=== PATIENT | female | born 1945 | race Caucasian/White ===

== ENCOUNTER 2024-03-28 02:37 | Observation (INO) | payer MEDICARE, BC, SELFPAY ==
[2024-03-27] VITALS (7 sets, daily range): BP systolic 72–138; BP diastolic 56–111; PULSE 114–124; BMI 26.4
[2024-03-27 21:28] LABS: % Basophils 0.4 % (0-2); % Eosinophils 0.8 % (0-6); % Immature Granulocytes 0.5 % (0-0.5); % Lymphocytes 12.8 % (20.5-51.1); % Monocytes 7.3 % (1.7-9.3); % Neutrophils 78.2 % (42.2-75.2); Absolute Basophils 0.1 10^3/uL (0-0.2); Absolute Eosinophils 0.1 10^3/uL (0-0.7); Absolute Immature Granulocytes 0.1 10^3/uL (0-0.05); Absolute Lymphocytes 1.4 10^3/uL (1.2-3.4); Absolute Monocytes 0.8 10^3/uL (0.1-0.6); Absolute Neutrophils 8.8 10^3/uL (1.4-6.5); Hematocrit 38.5 % (37.0-47.0); Mean Corp Hgb Conc. 36.4 g/dL (33.0-37.0); Mean Corpuscular Hgb 31.7 pg (27.0-31.0); Mean Corpuscular Volume 87.3 fL (81.0-99.0); Mean Platelet Volume 9.4 fL (7.4-10.4); Nucleated Red Blood Cells % 0 %; Platelet Count 452 10^3/uL (130-400); Red Blood Cell Count 4.41 10^6/uL (4.20-5.40); Red Cell Dist. Width 13.4 % (11.5-14.5); White Blood Cell Count 11.3 10^3/uL (4.8-10.8)
--- NOTE | 2024-03-27 21:43 | ED.GENMED ---
History of Present Illness
General
Chief Complaint: Heart Rate Problem
Time Seen by Provider: 03/27/24 21:32
History of Present Illness
History of Present Illness:
78-year-old female with history of A-fib on Eliquis and metoprolol, hyperlipidemia, hypertension presenting to the emergency department after syncopal episode. Patient reports that she was seen in the hospital today, had a colonoscopy. The GI
doctor had difficulty removing a polyp, so patient was under anesthesia for longer than anticipated. During the procedure, did have an episode of vomiting, however per documentation, no concern for aspiration. Patient reports that she woke up for
the procedure, has been feeling dizzy. She did not take any of her medications today including her metoprolol. She also has not taken her Eliquis for the past 2 days. She did not eat very much today, did have some crackers prior to bedtime. She
got up for the first time prior to arrival, had a syncopal episode in the bathroom. She is unsure whether or not she struck her head. She continues to report generalized lightheadedness and dizzy. Denies chest pain, difficulty breathing. Patient
noted to be in A-fib on arrival, reports that she cannot tell when she is in A-fib. Patient denies additional acute complaints
Phy Exam
Physical Exam
Physical Exam:
General: Well-appearing, no clinical signs of dehydration, nontoxic and in no acute distress
HEENT: protecting airway
Neck: appears supple, no midline tenderness
CV: Tachycardic, irregularly irregular rhythm, no evidence of cyanosis
Resp: No accessory muscle use, no increased work of breathing, lungs clear to auscultation bilaterally
Abd: Soft and non-distended, no tenderness to palpation
Extremities: No deformities, no swelling, no erythema
Neuro: alert, no focal neurologic deficit
: deferred
Rectal: deferred
Psych: Normal affect
Skin: Intact
Course
Orders/Labs/Results
Orders:
Orders
03/27/24 21:11
Electrocardiogram (*1) Urgent
Reason for Study: Chest Pain
EKG- Treatment ONCE
IV Insert/Care/Rem.- Treatment PRN
03/27/24 21:21
Complete Blood Count/With Diff Urgent
Comprehensive Metabolic Panel Urgent
03/27/24 21:41
CT Head W/o Iv Contrast Urgent
Comment:
Reason For Exam: fall on eliquis
Orthostatic VS- Treatment ONCE
0.9% Sodium Chloride 1000 ml [Nss] 1,000 ml IV BOLUS
Metoprolol [Lopressor] 5 mg IV NOW STA
03/27/24 21:49
Prothrombin Time Urgent
Troponin I Urgent
03/27/24 22:37
Metoprolol [Lopressor] 50 mg PO NOW STA
03/28/24 00:45
Troponin I Urgent
Abnormal Lab Results
03/27/24 03/27/24
21:21 21:49
WBC 11.3 H 10^3/uL
(4.8-10.8)
MCH 31.7 H pg
(27.0-31.0)
Plt Count 452 H 10^3/uL
(130-400)
Abs Immat Gran (auto) 0.1 H 10^3/uL
(0-0.05)
Absolute Neuts (auto) 8.8 H 10^3/uL
(1.4-6.5)
Absolute Monos (auto) 0.8 H 10^3/uL
(0.1-0.6)
Neutrophils % 78.2 H %
(42.2-75.2)
Lymphocytes % 12.8 L %
(20.5-51.1)
Carbon Dioxide 20 L mmol/L
(22-30)
BUN 23 H mg/dl
(7-17)
Creatinine 1.2 H mg/dL
(0.6-1.0)
Glucose 119 H mg/dl
(70-99)
Troponin I 0.063 H* ng/ml
03/27/24 21:21
03/27/24 21:21
Vital Signs
Initial and Last Documented VS:
Initial Vital Signs
Pulse Resp BP Pulse Ox
140 19 110/75 95
03/27/24 21:12 03/27/24 21:12 03/27/24 21:12 03/27/24 21:12
Last Documented Vital Signs
Temp Pulse Resp BP Pulse Ox
98.3 F 117 27 103/56 97
03/27/24 21:19 03/27/24 22:00 03/27/24 22:00 03/27/24 22:00 03/27/24 22:00
MDM/Problems Addressed
MDM/Problems Addressed:
78-year-old female with history of A-fib on Eliquis and metoprolol presenting after syncopal episode. Vital signs on arrival are significant for tachycardia.
On exam, patient is resting comfortably, no acute distress or discomfort. Patient appears to be in A-fib with RVR. Suspect that this could secondary to not taking any of her medications today, in addition reaction to anesthesia. Patient not a
candidate for cardioversion, has not taken last 2 doses of Eliquis. Regarding syncopal episode, do suspect component of dehydration, possible vasovagal given volume depletion today and anesthesia. Will plan for laboratory analysis and start
patient IV fluids. Will check orthostatics. No focal neurologic deficits on exam with most of her central neurologic process. Given anticoagulation status and unknown if patient struck head, will obtain CT brain. No cervical tenderness.
23:30 -Labs show mild elevation of creatinine, consistent with mild dehydration. CT brain is negative. Troponin is slightly elevated, suspected demand ischemia from RVR. Heart rate has improved. Patient still symptomatic. Positive orthostatics
with near syncope upon standing. Plan for admission for continued cardiac monitoring, troponin trending.
*EKG
Interpreted by ED Provider?: Yes
EKG Intrepretation Date: 03/27/24
EKG Intrepretation Time: 21:49
Interpretation: abnormal
Comparison EKG: changes noted (07/22/14)
Heart Rate: 144
Rate: tachycardiac
Rhythm: a-fib
Gray: normal axis
QRS Pattern: normal QRS
Ischemia: no ischemia
*Critical Care Note
Total Time (30-74mins, 75-104mins- exclusive of procedures): Not Applicable
ED Attending Note
-
Portions of this chart may have been created with voice recognition software.� Occasional wrong word or��sound alike� substitutions may have occurred due to the inherent limitations of voice recognition software.
Discharge Plan
Departure
Prescriptions:
No Action
omeprazole 20 MG tablet,delayed release (DR/EC)
20 mg PO DAILY
estradiol [Vagifem] 10 MCG tablet
10 mcg VAG TUFR Qty: 0
L.acidoph,paracasei,B.animalis 1 EACH capsule
1 ea PO DAILY
Patient Comments:
Probiotic Senior
calcium carbonate [Oyster Shell Calcium 500] 500 MG tablet
500 mg PO BID Qty: 0 0RF
loratadine 10 MG tablet
10 mg PO DAILY Qty: 0 0RF
levothyroxine 75 MCG tablet
75 mcg PO DAILY AT 0700
diltiazem HCl 240 MG capsule,extended release 24hr
240 mg PO DAILY
losartan-hydrochlorothiazide 1 EACH tablet
1 ea PO DAILY
ranitidine HCl [Zantac] 150 MG tablet
150 mg PO PRN PRN (Reason: GI sx)
methylcellulose (laxative) [Citrucel] 500 MG tablet
2,000 mg PO DAILY
magnesium 250 MG tablet
250 mg PO DAILY
atorvastatin 10 MG tablet
10 mg PO QPM
sennosides [senna] 1 TABLET tablet
2 tab PO BID Qty: 0 0RF
acetaminophen 325 MG tablet
650 mg PO Q4HWA Qty: 0 0RF
prednisone 10 MG tablet
20 mg PO TAPER Qty: 3 0RF
Rx Instructions:
2 tabs 07/13, 1 tab 07/14, then stop
polyethylene glycol 3350 17 GRAMS powder in packet
17 grams PO DAILY Qty: 0 0RF
famotidine 20 MG tablet
20 mg PO DAILYPRN PRN (Reason: GI SYMPTOMS) Qty: 0 0RF
magnesium hydroxide 30 ML suspension
30 ml PO DAILYPRN PRN (Reason: constipation) Qty: 0 0RF
warfarin [Jantoven] 5 MG tablet
7.5 mg PO HS Qty: 120 0RF
Rx Instructions:
take 1 1/2 tabs (or 7/5mg) tonight 07/12, and th 07/13, then as advised after INR fri
docusate sodium 100 MG capsule
100 mg PO BID Qty: 0 0RF
oxycodone 5 MG tablet
5 mg PO Q4HPRN PRN (Reason: moderate-severe pain) Qty: 90 0RF
Rx Instructions:
dx tka
1-2 tabs
Referrals:
Asim Murphy MD [Family Provider] -
Interventions
Interventions:
*Risk Screen - Suicide Last Done: 03/27/24 21:12
*General Assessment Last Done: 03/27/24 21:12
*Neglect/Abuse Screening Last Done: 03/27/24 21:12
ED- Fall Risk Assessment Last Done: 03/27/24 22:01
*ED COVID-19 Vaccine History Last Done: 03/27/24 21:12
ED- Cardiac Assessment Last Done: 03/27/24 22:01
ED- Pulmonary Assessment Last Done: 03/27/24 22:01
Discharge Date and Time
Print Language: DJIBOUTIAN
[2024-03-27] MEDS: NSS 1000 IV (21:47)
[2024-03-27] MEDS: LOPRESSOR 5 MG IV (21:49)
[2024-03-27 21:50] LABS: ALT (SGPT) 22 U/L (0-35); AST (SGOT) 29 U/L (14-36); Albumin 4.6 g/dl (3.5-5.0); Alkaline Phosphatase 83 U/L (38-126); Blood Urea Nitrogen 23 mg/dl (7-17); Calcium 8.9 mg/dl (8.4-10.2); Carbon Dioxide 20 mmol/L (22-30); Chloride 102 mmol/L (98-107); Estimated Creatinine Clearance 39 ml/min; Glucose 119 mg/dl (70-99); Potassium 3.5 mmol/L (3.5-5.1); Sodium 135 mmol/L (135-145); Total Bilirubin 0.9 mg/dl (0.2-1.3); Total Protein 6.6 g/dl (6.3-8.2); eGFR 45.76
[2024-03-27 22:06] LABS: INR 0.94; PT 13.1 Sec (11.4-14.6)
[2024-03-27 22:23] LABS: Troponin I 0.063 ng/ml
[2024-03-27] MEDS: LOPRESSOR 50 MG PO (22:44)
--- NOTE | 2024-03-27 23:53 | PTCARENOTE ---
Pt had episode of sycope while standing during othostatics. Pt was placed in trendelenbrg, provided fluids, s/s resolved. Pt aox4, with improved color.
[2024-03-28] VITALS (33 sets, daily range): BP systolic 90–160; BP diastolic 52–95; PULSE 65–87
--- NOTE | 2024-03-28 01:41 | HPS.HSE ---
Family Physician
-
Family Physician: Asim Murphy
Chief Complaint
-
syncopal episode, uncontrolled afib
History of Present Illness
This is an 78-year-old female with past medical history of atrial fibrillation on eliquis and metoprolol coming in with syncope.
Patient reported that she had a colonoscopy on morning. Prior to that she was off Eliquis for 3 days. She was having a limited diet with only clear liquids for 1 day.
They had difficulty getting a polyp so was under sedation for awhile. Appeared to have been a rather large polyp and not everything was excised. She is pending a biopsy results. She denies having any bowel movement since. She clearly did not
have any blood. She felt dizzy getting up. Later on when she had a very small meal. She went home and went to bed. She stood up from bed and tried to walk across the room she became very lightheaded and dizzy and passed out in the bathroom. She
was not sure whether she hit her head or not. Didn't eat much today and didn't take any of her cardiac medications.
In the ED she was found to have some urinary retention requiring straight cath 404 50 cc of urine. She denied any dysuria. She denied fevers or chills.
In the emergency department she was afebrile, she was tachycardic, blood pressure was 90/69 with a pulse of 117. ECG shows A-fib at rate of 144, troponin was 0.06. CT of the head was negative. CBC was unremarkable. Electrolytes BUN/creatinine
were also mostly unchanged from baseline. Creatinine slightly worsened from 0.9-1.2.
She was given some IV fluids and metoprolol in the ED. She was found to be positively orthostatic and near syncopal when she stood up.
Medical History
Past Medical History
Past Medical History: Reports Arrhythmia (Proximal atrial fibrillation), GERD, HTN, Hypercholesterolemia, Hypothyroidism and Other (Essential thrombocytosis)
Past Surgical History: Reports Gynocological (Status post hysterectomy) and Orthopedic (Status post total right knee arthroplasty)
Social History
Tobacco: Non-smoker
Alcohol: None
Drug: None
Employment: Retired
Family History
Family History: Not pertinent
Allergies / Home Medications
Allergies reflects when Allergies were last updated in [facility].
Home Medications with original date entered in [facility]
Allergy/Medication List:
Allergies
Allergy/AdvReac Type Severity Reaction Status Date / Time
adhesive Allergy Rash Verified 07/10/16 10:08
bacitracin Allergy Rash Verified 07/10/16 10:08
[From Neosporin
([id number])]
bacitracin zinc Allergy Rash Verified 07/10/16 10:08
[From Neosporin
([id number])]
Latex, Natural Rubber Allergy Rash Verified 07/10/16 10:08
neomycin sulfate Allergy Rash Verified 07/10/16 10:08
[From Neosporin
([id number])]
polymyxin B Allergy Rash Verified 07/10/16 10:08
[From Neosporin
([id number])]
polymyxin B sulfate Allergy Rash Verified 07/10/16 10:08
[From Polysporin]
Enviornmental Allergy Stuffiness, Uncoded 07/10/16 10:08
sneezing
Home Medications
Hydroxyurea 500 MG 1 capsule Orally Once a day - Active
ZyrTEC Allergy 10 MG 1 tablet Orally Once a day Active
hydroCHLOROthiazide 25 MG 1 tablet in the morning Orally Once a day for 90 days Active
Magnesium Glycinate 120 MG as directed Orally 150 mg Active
Valsartan 320 MG 1 tablet Orally Once a day Active
Cartia XT 240 MG 1 capsule Orally Once a day for 90 days May, Active
CoQ-10 100 MG 1 capsule with a meal Orally Twice a Day for 30 days Active
Probiotic - Orally Active
Toprol XL 25 MG 1 tablet Orally Once a day for 90 days Apr, Active
Calcium Citrate 150 MG as directed Orally Active
Losartan Potassium 100 MG 1 tablet Orally Once a day for 90 days Not-Taking/PRN
Multivitamin Adult - 1 tablet Orally BID Active
Aloe Vera 25 MG as directed Orally Active
Metoprolol Tartrate 25 MG 1 tablet with food Orally as needed for 30 days as needed for A-Fib Active
Loratadine 10 MG 1 tablet Orally Once a day for 30 day(s) Active
Eliquis 5 MG 1 tablet Orally BID for 90 days Active
Atorvastatin Calcium 10 MG 1 tablet Orally Once a day for 30 day(s) Active
Levothyroxine Sodium 75 MCG take 1 tablet by oral route every day Oral Active
Review of Systems
-
Constitutional: Reports No Symptoms
EENT: Reports No Symptoms
Respiratory: Reports No Symptoms
Cardiac: Reports No Symptoms
Abdomen/GI: Reports No Symptoms
: Reports No Symptoms
Musculoskeletal: Reports No Symptoms
Skin: Reports No Symptoms
Neurological: Reports No Symptoms
Endocrine: Reports No Symptoms
Hematologic/Lymphatic: Reports No Symptoms
Psych: Reports No Symptoms
Physical Exam
Vital Signs
Vital Signs
Temp Pulse Resp BP Pulse Ox
98.3 F 117 31 99/69 95
03/27/24 21:19 03/28/24 00:30 03/28/24 00:30 03/28/24 00:30 03/28/24 00:30
Physical Exam
General: Well Developed, Well Nourished, No Apparent Distress and Comfortable
HEENT: NormoCephalic, Anicteric, Moist mucous membranes and Atraumatic
Respiratory: Clear
Cardiac: S1/S2, Irregular Rhythm and Tachycardia
Breast: Deferred by me
GI: Soft, Non Tender, Non Distended and Normal Bowel Sounds
Rectal: Deferred by Provider
Genito-urinary: Clear Urine
Musculoskeletal: No Clubbing and No Cyanosis
Skin: Warm
Neuro: AO x 3 and Nonfocal/grossly intact
Hematologic/Lymphatic: No Lymphadenopathy
Psych: Calm
Laboratory Results
-
03/27/24 21:21
03/27/24 21:21
Laboratory Results
PT 13.1 Sec (11.4-14.6) 03/27/24 21:49
INR 0.94 03/27/24 21:49
Total Bilirubin 0.9 mg/dl (0.2-1.3) 03/27/24 21:21
AST 29 U/L (14-36) 03/27/24 21:21
ALT 22 U/L (0-35) 03/27/24 21:21
Alkaline Phosphatase 83 U/L (38-126) 03/27/24 21:21
Troponin I 0.063 ng/ml H* 03/27/24 21:49
Data Reviewed
-
CT Scan: Report Reviewed by me
Medical Tests (Nuc Med, Echo, EKG etc): Image Personally Visualized and interpreted
Lab Data: Labs Reviewed by me
Old Records: Reviewed
Impression/Plan
-
IMPRESSION:
78-year-old female who is status post colonoscopy with removal of a large polyp presents to the emergency department with syncopal episode and found to be in A-fib RVR. She has been of metoprolol and Eliquis. She has been off Eliquis for 3 days
and off of metoprolol for over 24 hours. She states she takes metoprolol as needed for A-fib in addition to her Toprol-XL daily. She is also on diltiazem to 240 mg which she did not take.
PLAN:
1. Syncope - Suspect hemodynamic and secondary to prolonged anesthesia. No evidence of blood loss but has not had any bms
- admit to telemetry/observation
- hold eliquis for now
- hold valsartan and hctz
- orthostatic v/s in am
- continue iv fluids overnight
- check u/a
2. AFIB RVR - Likely due to dehydration and holding off medications
- holding valsartan hctz
- hold eliquis for 2 days post op and ensure no bleeding
- will give metoprolol and diltiazem tonight and restart long acting forms in am
- continue telemetry monitoring
3. Trop elevation - I suspect in setting of demand due to afib rvr and relative hypotension. No chest pain
- trend troponin
- no ac for now unless up trending
- stool occult testing
DVT PPX - SCDs for now
Code status - full code
[2024-03-28 02:18] LABS: Troponin I 0.068 ng/ml
[2024-03-28] MEDS: NSS 500 IV (02:37)
[2024-03-28] MEDS: NSS 1000 IV ×2 (04:41→13:55)
[2024-03-28 05:36] LABS: Hematocrit 32.8 % (37.0-47.0); Hemoglobin 11.4 g/dL (12.0-16.0); Mean Corp Hgb Conc. 34.8 g/dL (33.0-37.0); Mean Corpuscular Hgb 31.8 pg (27.0-31.0); Mean Corpuscular Volume 91.4 fL (81.0-99.0); Mean Platelet Volume 9.8 fL (7.4-10.4); Platelet Count 388 10^3/uL (130-400); Red Blood Cell Count 3.59 10^6/uL (4.20-5.40); Red Cell Dist. Width 13.6 % (11.5-14.5); White Blood Cell Count 9.4 10^3/uL (4.8-10.8)
[2024-03-28 05:48] LABS: Urine Albumin Negative (Neg - Trace); Urine Bilirubin Negative (Negative); Urine Character Clear (Clear); Urine Color Yellow; Urine Glucose Negative (Negative); Urine Ketone Negative (Negative); Urine Leukocyte Negative (Negative); Urine Nitrite Negative (Negative); Urine Occult Blood Negative (Negative); Urine Specific Gravity 1.015 (<1.030); Urine Urobilinogen Negative (Neg - 1+)
[2024-03-28 06:07] LABS: Blood Urea Nitrogen 20 mg/dl (7-17); Calcium 7.5 mg/dl (8.4-10.2); Carbon Dioxide 21 mmol/L (22-30); Chloride 107 mmol/L (98-107); Estimated Creatinine Clearance 47 ml/min; Glucose 141 mg/dl (70-99); Potassium 3.2 mmol/L (3.5-5.1); Sodium 139 mmol/L (135-145); eGFR 56.95
[2024-03-28 06:11] LABS: Troponin I 0.064 ng/ml
[2024-03-28] MEDS: SYNTHROID 75 MCG PO (09:29)
[2024-03-28] MEDS: KCL 40 MEQ PO (09:29)
[2024-03-28] MEDS: CLARITIN 10 MG PO (09:29)
[2024-03-28] MEDS: TOPROL XL 25 MG PO (09:33)
[2024-03-28] MEDS: CARDIZEM CD 240 MG PO (09:33)
--- NOTE | 2024-03-28 14:13 | W.PN.UPDATE ---
Update Note
Progress Note Update
Seen and examined independent of overnight physician
States feeling significantly better. Denies any lightheaded and dizziness
Able to tolerate diet without any difficulty
Converted to normal sinus rhythm on the monitor.
General: Well Developed, Well Nourished, No Apparent Distress and Comfortable
HEENT: NormoCephalic, Anicteric, Moist mucous membranes and Atraumatic
Respiratory: Clear
Cardiac: S1/S2, regularly regular
Breast: Deferred by me
GI: Soft, Non Tender, Non Distended and Normal Bowel Sounds
Rectal: Deferred by Provider
Genito-urinary: Clear Urine
Musculoskeletal: No Clubbing and No Cyanosis
Skin: Warm
Neuro: AO x 3 and Nonfocal/grossly intact
Hematologic/Lymphatic: No Lymphadenopathy
Psych: Calm
IMPRESSION:
78-year-old female who is status post colonoscopy with removal of a large polyp presents to the emergency department with syncopal episode and found to be in A-fib RVR. She has been of metoprolol and Eliquis. She has been off Eliquis for 3 days
and off of metoprolol for over 24 hours. She states she takes metoprolol as needed for A-fib in addition to her Toprol-XL daily. She is also on diltiazem to 240 mg which she did not take.
PLAN:
Syncope - Suspect hemodynamic and secondary to prolonged anesthesia. No evidence of blood loss but has not had any bms
- hold eliquis for now as supposed to be helpful 2 days postprocedure
- hold valsartan and hctz
- Orthostatic negative.
- Blood pressure stabilized. DC further fluids. Tolerating p.o. intake.
AFIB RVR - Likely due to dehydration and holding off medications -now in NSR
- holding valsartan hctz
- hold eliquis for 2 days post op and ensure no bleeding
- will give metoprolol and diltiazem tonight and restart long acting forms patient converted to normal sinus rhythm on telemetry. Heart rate controlled.
- continue telemetry monitoring. Follows with [facility] cardiology Dr. Tapia
Nonischemic myocardial injury suspect in setting of demand due to afib rvr and relative hypotension. No chest pain
-Patient denies any chest pain at rest or exertion.
Leukocytosis likely reactive
Resolved
Hypokalemia�replete and monitor
DVT PPX - SCDs for now
Code status - full code
PT/OT ordered.
Await for rehab evaluation. Continue to hold lisinopril HCTZ. Monitor heart rate. Plan for tentative DC later today
--- NOTE | 2024-03-28 16:23 | W.DCSUMMARY ---
Discharge Summary
Discharge Data
Date of Admission: 03/28/24
Date of Discharge: 03/28/24
-
Pending Results: No
Hospital Course
78-year-old female past medical history of atrial fibrillation, GERD, primary hypertension, hyperlipidemia, hypothyroidism who is status post colonoscopy with removal of a large polyp presents to the emergency department with syncopal episode and
found to be in A-fib RVR. 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 She has been off Eliquis for 3 days and off of metoprolol for over 24 hours. She states she takes metoprolol as needed for A-fib in addition to her Toprol-XL daily. She is
also on diltiazem to 240 mg which she did not take. Patient was severely dehydrated. Patient says she was feeling lightheaded dizzy upon admission. Upon admission to hospital patient received aggressive IV fluid resuscitation. Patient blood
pressure stabilized. Patient was restarted on Cardizem metoprolol. Patient converted to normal sinus rhythm. Patient heart rate remained controlled and in normal sinus rhythm. Patient troponin elevation was likely nonischemic myocardial injury.
Patient did not have any chest pain. Patient was ambulating without any difficulty. Patient was tolerating diet without any difficulty. 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
Patient was eval by physical therapy and will be discharged home with VN.
Discharge Plan
-
Patient Disposition: Home with Home Care
Discharge Diagnosis/Procedures: Syncope - Suspect hemodynamic and secondary to prolonged anesthesia and severe dehydration
AFIB RVR status post converted to normal sinus rhythm
Condition: Fair
Diet: Low Cholesterol
Activity: With assistance and As tolerated
Driving Restrictions: As prior to admission
Other Services: VN
Activity Restrictions/Additional Instructions:
Restart Eliquis as recommended by her district fire chief.
Referrals:
Asim Murphy MD [Family Provider] - in less than 1 week
Additional Discharge Medication Instructions: Recommend to stop taking valsartan and HCTZ until evaluated by your primary doctor.
Prescriptions:
Continued
levothyroxine 75 MCG tablet
75 mcg PO DAILY AT 0700
diltiazem HCl 240 MG capsule,extended release 24hr
240 mg PO DAILY
atorvastatin 10 MG tablet
10 mg PO QPM
hydroxyurea 500 mg Capsule
500 mg PO MOWEFRSA
therapeutic multivitamin Tablet
1 tab PO DAILY
ascorbic acid (vitamin C) [Vitamin C] 500 mg Tablet
500 mg PO DAILY
metoprolol succinate [Toprol XL] 25 mg Tablet Extended Release 24 Hr
25 mg PO DAILY
aloe vera 25 mg Capsule
75 mg PO QPM
calcium citrate 200 mg (950 mg) Tablet
200 mg PO BID
magnesium glycinate 100 mg Tablet
150 mg PO BID
coQ10 (ubiquinol) 100 mg Capsule
200 mg PO DAILY
Held
Eliquis 5 mg Tablet
5 mg PO BID
Hold Instructions: Resume on 03/29/24. RESTART RECOMMENDED PER YOUR BUILDING CONSTRUCTION FOREMAN
Discontinued
valsartan 320 mg Tablet
320 mg PO DAILY
hydrochlorothiazide 25 mg Tablet
25 mg PO DAILY
Discharge Orders:
Discharge Patient (As Directed); Ordered 03/28/24
Ordered By: Elver Mcgill
Discharge Date and Time
Discharge Date/Time: 03/28/24 17:40
Print Language: WELSH
--- NOTE | 2024-03-28 16:40 | CM ---
CM met with patient in room. Patient confirmed that she lives in [facility]. Patient has [facility], but is agreeable to RN via [facility]. Referral sent via [facility].
== END 2024-03-28 17:40 | disposition home health service (06) ==
LOC: ED 02:37
PROVIDERS: ADMITTING PHYSICIAN Internal Medicine; ATTENDING PHYSICIAN Hospitalist; EMERGENCY PHYSICIAN Student in an Organized Health Care Education/Training Program; FAMILY PHYSICIAN Internal Medicine
DX: R55 Syncope and collapse (principal); I48.0 Paroxysmal atrial fibrillation; R00.0 Tachycardia, unspecified; R33.9 Retention of urine, unspecified; D72.829 Elevated white blood cell count, unspecified; E86.0 Dehydration; E87.6 Hypokalemia; I5A Non-ischemic myocardial injury (non-traumatic); W19.XXXA Unspecified fall, initial encounter; Y93.9 Activity, unspecified; Y92.9 Unspecified place or not applicable; G31.9 Degenerative disease of nervous system, unspecified; E03.9 Hypothyroidism, unspecified; K21.9 Gastro-esophageal reflux disease without esophagitis; E78.00 Pure hypercholesterolemia, unspecified; I10 Essential (primary) hypertension; D47.3 Essential (hemorrhagic) thrombocythemia; Z86.0100 Personal history of colon polyps, unspecified; Z79.01 Long term (current) use of anticoagulants; Z79.891 Long term (current) use of opiate analgesic; Z79.52 Long term (current) use of systemic steroids; Z96.651 Presence of right artificial knee joint; Z90.710 Acquired absence of both cervix and uterus; Z88.1 Allergy status to other antibiotic agents; Z91.040 Latex allergy status; Z91.048 Other nonmedicinal substance allergy status; Z79.890 Hormone replacement therapy
CPT/HCPCS: 51701; 51798; 70450; 80048; 80053; 81003; 84484; 85025; 85027; 85610; 93005; 96361; 96374; 97162; 99285; G0378

== ENCOUNTER 2024-04-17 11:16 | Emergency (ER) | payer MEDICARE, BC, SELFPAY ==
[2024-04-17 11:21] VITALS: BP 116/73
[2024-04-17 11:40] LABS: % Basophils 0.4 % (0-2); % Eosinophils 1.8 % (0-6); % Immature Granulocytes 0.4 % (0-0.5); % Lymphocytes 17.9 % (20.5-51.1); % Monocytes 5.9 % (1.7-9.3); % Neutrophils 73.6 % (42.2-75.2); Absolute Eosinophils 0.2 10^3/uL (0-0.7); Absolute Lymphocytes 1.6 10^3/uL (1.2-3.4); Absolute Monocytes 0.5 10^3/uL (0.1-0.6); Absolute Neutrophils 6.6 10^3/uL (1.4-6.5); Hematocrit 40.6 % (37.0-47.0); Hemoglobin 13.8 g/dL (12.0-16.0); Mean Corpuscular Hgb 31.2 pg (27.0-31.0); Mean Corpuscular Volume 91.6 fL (81.0-99.0); Mean Platelet Volume 9.4 fL (7.4-10.4); Nucleated Red Blood Cells % 0 %; Platelet Count 524 10^3/uL (130-400); Red Blood Cell Count 4.43 10^6/uL (4.20-5.40); Red Cell Dist. Width 13.7 % (11.5-14.5)
[2024-04-17 11:53] LABS: ALT (SGPT) 22 U/L (0-35); AST (SGOT) 26 U/L (14-36); Albumin 4.6 g/dl (3.5-5.0); Alkaline Phosphatase 90 U/L (38-126); Blood Urea Nitrogen 23 mg/dl (7-17); Calcium 9.8 mg/dl (8.4-10.2); Carbon Dioxide 28 mmol/L (22-30); Chloride 101 mmol/L (98-107); Glucose 109 mg/dl (70-99); INR 1.13; PT 15.1 Sec (11.4-14.6); Potassium 4.2 mmol/L (3.5-5.1); Sodium 137 mmol/L (135-145); Total Bilirubin 0.8 mg/dl (0.2-1.3); Total Protein 7.1 g/dl (6.3-8.2); eGFR > 60.00
--- NOTE | 2024-04-17 12:45 | ED.GENMED ---
History of Present Illness
General
Chief Complaint: Heart Rate Problem
Source: patient
Exam Limitations: none
Time Seen by Provider: 04/17/24 12:30
Nursing documentation reviewed up to this point in time: agreed with
History of Present Illness
History of Present Illness:
Patient is an 78-year-old female past medical history of A-fib on Eliquis twice a day (followed by Dr. Wilfrdeo Tapia )presents to the ER for evaluation. This morning around 9:30 AM she felt her heart beating fast and every time she stood up she felt
she was going to pass out. She used her Kardia machine for A-fib and it told her she was in A-fib.
She reports normally she is in normal sinus rhythm however several weeks ago she had a colonoscopy and afterwards went into rapid A-fib and was admitted here to the hospital. She is followed with Dr. Tapia. She is on Eliquis twice a day and did
take her morning dose today.
Patient has been taking her other medicines including diltiazem HCl 240 mg capsule extended release every 24 hours metoprolol 20 mg extended release 24-hour.
Through my exam patient feels a little tired denies a rapid heart rate sensation. Patient is actually normal sinus rhythm at this time.
Review of Systems
Review of Systems
Allergies reviewed?: Yes
All Other Systems: ROS reviewed and negative except as documented in HPI and ROS
Constitutional: Reports no symptoms; Denies fever, fatigue or chills
Respiratory: Reports no symptoms
Cardiac: Reports palpitations; Denies chest pain, diaphoresis or syncope
ABD/GI: Reports no symptoms
: Reports no symptoms
Musculoskeletal: Reports no symptoms
Skin: Reports no symptoms
Neurological: Reports no symptoms
Psychiatric: Reports no symptoms
Phy Exam
General Physical Exam
General Presentation: no apparent distress
General age: appears stated age
General Skin: warm and dry
General Habitus: normal
General Mental: alert
General Hydration: appears well hydrated
Neurological Exam
Neurological Exam: alert and oriented x3
Musculoskeletal Exam
Musculoskeletal Exam: full ROM
Skin Exam
Skin Exam: normal color and warm/dry
Psychiatric Exam
Psychiatric Exam: normal mood/affect
Course
Orders/Labs/Results
Orders:
Orders
04/17/24 11:20
EKG [Electrocardiogram (*1)] Urgent
Reason for Study: Atrial Fibrillation
04/17/24 11:21
EKG- Treatment ONCE
04/17/24 11:26
Complete Blood Count/With Diff Urgent
Comprehensive Metabolic Panel Urgent
PT/INR [Prothrombin Time] Urgent
TSH Reflex To Free T4 Urgent
Comment: ADD ON
04/17/24 12:56
Electrocardiogram (*1) Routine
Comment: ALREADY DONE IN ED
04/17/24 13:00
0.9% Sodium Chloride 500 ml [Nss] 500 ml IV BOLUS
04/17/24 13:02
Add On- LAB Urgent
Tests Added?: tsh with reflexive t4
Abnormal Lab Results
04/17/24
11:26
MCH 31.2 H pg
(27.0-31.0)
Plt Count 524 H 10^3/uL
(130-400)
Absolute Neuts (auto) 6.6 H 10^3/uL
(1.4-6.5)
Lymphocytes % 17.9 L %
(20.5-51.1)
PT 15.1 H Sec
(11.4-14.6)
BUN 23 H mg/dl
(7-17)
Glucose 109 H mg/dl
(70-99)
04/17/24 11:26
04/17/24 11:26
Vital Signs
Initial and Last Documented VS:
Initial Vital Signs
Temp Pulse Resp BP Pulse Ox
97.8 F 64 18 116/73 98
04/17/24 11:21 04/17/24 11:21 04/17/24 11:21 04/17/24 11:21 04/17/24 11:21
Last Documented Vital Signs
Temp Pulse Resp BP Pulse Ox
97.8 F 67 26 117/60 96
04/17/24 11:21 04/17/24 15:15 04/17/24 15:15 04/17/24 15:00 04/17/24 15:15
MDM/Problems Addressed
MDM/Problems Addressed:
Patient is an 78-year-old female who presented to the ER for evaluation. Patient felt palpitations today/ felt she was going to pass out .
patient arrives in A-fib in the 120s but spontaneously converted to normal sinus rhythm. She was here in February for A-fib as well. She is on anticoagulation and has not missed a dose. Patient has remained in normal sinus rhythm here in the ER.
She is mildly dehydrated with a BUN of 23 I gave her small fluid bolus. Case discussed with cardiology. Patient is stable for discharge home. Cardiology will call her tomorrow to have her come in for a Holter monitor. She has an appoint with
cardiology April 23. She is in no acute distress is reasonable sinus rhythm here in the ER.
*Pulse Oximetry
Patient hypoxic: no
*EKG
Interpretation: abnormal
Comparison EKG: changes noted (A-fib replaced normal sinus rhythm)
Heart Rate: 120
Rate: tachycardiac
Rhythm: a-fib
Ischemia: other (Repeat EKG done at 12:56 PM shows sinus rhythm first-degree block heart rate of 69)
*Critical Care Note
Total Time (30-74mins, 75-104mins- exclusive of procedures): Not Applicable
Patient Management
Discussion with other providers: Business Advisor (Dr Viviana Reid )
ED Attending Note
-
Portions of this chart may have been created with voice recognition software.� Occasional wrong word or��sound alike� substitutions may have occurred due to the inherent limitations of voice recognition software.
Discharge Plan
Departure
Patient Disposition: Home (Routine Discharge)
Date of Disposition: 04/17/24
Time of Disposition: 15:20
Patient with high blood pressure during this ER visit?: No
Condition: Fair
Covid-19: Not Applicable
Discharge Problem:
Atrial fibrillation, rapid
Instructions: Atrial Fibrillation (DC)
Prescriptions:
No Action
levothyroxine 75 MCG tablet
75 mcg PO DAILY AT 0700
diltiazem HCl 240 MG capsule,extended release 24hr
240 mg PO DAILY
atorvastatin 10 MG tablet
10 mg PO QPM
hydroxyurea 500 mg Capsule
500 mg PO MOWEFRSA
therapeutic multivitamin Tablet
1 tab PO DAILY
ascorbic acid (vitamin C) [Vitamin C] 500 mg Tablet
500 mg PO DAILY
metoprolol succinate [Toprol XL] 25 mg Tablet Extended Release 24 Hr
25 mg PO DAILY
aloe vera 25 mg Capsule
75 mg PO QPM
calcium citrate 200 mg (950 mg) Tablet
200 mg PO BID
magnesium glycinate 100 mg Tablet
150 mg PO BID
coQ10 (ubiquinol) 100 mg Capsule
200 mg PO DAILY
Eliquis 5 mg Tablet
5 mg PO BID
Referrals:
Asim Murphy MD [Family Provider] -
Viviana Reid MD [Active] -
Activity Restrictions/Additional Instructions:
As discussed the cardiology office will call you tomorrow to have you come in there office for a 7-day Holter monitor. Be sure to stay well-hydrated and continue your present medications. Return to the ER for any worsening of symptoms
Interventions
Interventions:
*Risk Screen - Suicide Last Done: 04/17/24 11:21
*General Assessment Last Done: 04/17/24 11:21
*Neglect/Abuse Screening Last Done: 04/17/24 11:21
ED- Fall Risk Assessment Last Done: 04/17/24 14:00
*ED COVID-19 Vaccine History Last Done: 04/17/24 11:21
*Nursing Disposition Last Done: 04/17/24 15:26
ED- Cardiac Assessment Last Done: 04/17/24 14:00
ED- Pulmonary Assessment Last Done: 04/17/24 14:00
Discharge Date and Time
Discharge Date/Time: 04/17/24 15:26
Print Language: SPANISH
[2024-04-17 13:43] VITALS: BP 124/60
[2024-04-17] MEDS: NSS 500 IV (13:44)
[2024-04-17 14:00] VITALS: BP 123/64
[2024-04-17 15:00] VITALS: BP 117/60
[2024-04-17 15:11] LABS: TSH Reflex To Free T4 0.82 uIU/ml (0.47-4.68)
== END 2024-04-17 15:26 | disposition home or self-care (01) ==
LOC: EMR 11:16
PROVIDERS: Emergency Medicine; EMERGENCY PHYSICIAN Student in an Organized Health Care Education/Training Program; FAMILY PHYSICIAN Internal Medicine
DX: I48.91 Unspecified atrial fibrillation (principal); E86.0 Dehydration; Z79.01 Long term (current) use of anticoagulants
CPT/HCPCS: 99283; 80053; 84443; 85025; 85610; 93005